=== PATIENT | female | born 1980 | race African-American/Black ===

== ENCOUNTER 2019-08-03 05:14 | Day surgery (SDC) | payer BC ==
[2019-07-30 15:50] VITALS: BMI 39.9
[2019-08-03] MEDS ORDERED: ePHEDrine SULFATE 50 MG/1 ML AMPULE ONE (15:23)
[2019-08-03] MEDS ORDERED: MIDAZOLAM HCL 2 MG/2 ML SINGLE DOSE VIAL ONE (15:23)
[2019-08-03] MEDS ORDERED: PROPOFOL 20 ML ONE ×2 (15:23)
[2019-08-03] MEDS ORDERED: LIDOCAINE HCL/PF 2% SDV 5ML VIAL ONE (15:25)
[2019-08-03] MEDS ORDERED: ACETAMINOPHEN 325 MG TABLET (FP) PO PRN (15:30)
[2019-08-03] MEDS ORDERED: IBUPROFEN 400 MG TABLET (FP) PO PRN (15:30)
--- NOTE | 2019-08-03 15:30 | HP ---
History & Physical Update - History History: No Change - Physical Physical: No Change - Assessment Assessment: No Change - Plan Plan: No Change (No change in HP)
--- NOTE | 2019-08-03 15:34 | OP ---
Operative Note - Note: Operative Date: 08/03/19 Pre-Operative Diagnosis: submucosal myoma. Menorrhagia Operation: Hysteroscopic myomectomy. Suction DC Post-Operative Diagnosis: Same as Pre-op Surgeon: Darling Campbell Anesthesia: General Estimated Blood Loss (mls): 20 Operative Report Dictated: Yes
--- NOTE | 2019-08-03 15:36 | HP ---
Satellite [facility] - Chief Complaint History Source: Patient Limitations to Obtaining History: No Limitations - Past Medical History Allergies/Adverse Reactions: Allergies Allergy/AdvReac Type Severity Reaction Status Date / Time oxycodone [From Percocet] AdvReac Intermediate Vomiting Verified 07/30/19 15:46 ...LMP: 07/11/19 ...: No - Current Medications Current Medications: Home Medications Medication Instructions Recorded Ibuprofen [Motrin -] 600 mg PO QID #28 tablet 08/03/19 Satellite Physical Exam - Physical Examination Vital Signs: Vital Signs Period Temp Pulse Resp BP Sys/Lopez Pulse Ox Last 24 Hr 98.2 F-98.2 F 96-96 20-20 145-145/91-91 98 General Appearance: Well Nourished, Well Developed Abdomen: Soft, No tenderness Extremities: No edema Pelvic Exam: Within normal limits External Genitalia, Within normal limits Vagina, Within normal limits Cervix, Within normal limits [place], Other Uterus Neurological: Intact, Alert, Oriented Satellite Impression/Plan - Impression/Plan Impression: Submucosal myoma. Leiomyomatous uterus Operative Procedure: Hysteroscopic myomectomy. Suction DC Date to be Performed: 08/03/19
[2019-08-03] MEDS ORDERED: ROCURONIUM BROMIDE 50 MG/5 ML SYRINGE ONE (15:55)
[2019-08-03] MEDS ORDERED: KETOROLAC TROMETHAMINE 30 MG/1 ML VIAL ONE (16:09)
[2019-08-03] MEDS ORDERED: DEXAMETHASONE SOD PHOSPHATE 4 MG/1 ML VIAL ONE (16:09)
[2019-08-03] MEDS ORDERED: GLYCOPYRROLATE 0.2 MG/1 ML VIAL ONE (16:14)
[2019-08-03] MEDS ORDERED: NEOSTIGMINE METHYLSULFATE 0.5 MG/ML - 10 ML MDV ONE (16:25)
[2019-08-03] MEDS ORDERED: ACETAMINOPHEN INJECTION 100 ML IVPB ONE (17:04)
[2019-08-03] MEDS ORDERED: ONDANSETRON 4 MG/2 ML VIAL IVPUSH PRN (17:05)
[2019-08-03] MEDS ORDERED: ACETAMINOPHEN 1000 MG/100 ML VIAL (NON FORMULARY) IVPB ONE (17:06)
[2019-08-03] MEDS ORDERED: KETOROLAC TROMETHAMINE 30 MG/1 ML VIAL IVPUSH ONE (17:07)
[2019-08-03] MEDS ORDERED: LACTATED RINGERS SOLUTION 1,000 ML IV SCH (17:15)
[2019-08-03 18:29] VITALS: TEMP 98.4
[2019-08-03 19:40] VITALS: BP 120/65; PULSE 98
--- NOTE | 2019-08-04 10:21 | OP ---
DATE OF OPERATION: 08/03/2019 PREOPERATIVE DIAGNOSIS: Submucosal myoma, leiomyomatous uterus, menorrhagia. OPERATION: Hysteroscopic myomectomy and suction dilation and curettage. POSTOPERATIVE DIAGNOSIS: Submucosal myoma, leiomyomatous uterus, menorrhagia. SURGEON: Darling Campbell MD PROCEDURE: Patient was taken to the operating room, placed in a dorsal lithotomy position, prepped and draped in the usual sterile fashion. A time-out was performed in accordance with hospital regulation. Speculum was placed in the vagina. Anterior lip of the cervix was grasped with a single-tooth tenaculum. Cervix was then dilated to accommodate the operative hysteroscope. Visualization revealed numerous sublingual myomas. Cautery and cutting of all of the myomas was done. Most of the cavity was mostly obliterated with myoma. Some adenomyosis was seen in the cavity. More myoma was seen intramurally but had to stop procedure due to deficit but most of the cavity appeared to be better after the procedure. Estimated blood loss was about 150 mL. Patient tolerated procedure well and was taken to recovery room in stable condition. DARLING CAMPBELL M.D. [id number]
--- NOTE | 2019-08-05 15:42 | PATH ---
Surgical Pathology Report Patient Name: TASHIA JARRETT [facility]. Rec. #: [id number] /Age/Gender: 1980 (Age: 38) / F Account: [id number] Location: [facility] SURGICAL Taken: 08/03/2019 Received: 08/04/2019 Reported: 08/05/2019 Physicians: Darling Campbell M.D. Specimen(s) Received A: ENDOMETRIAL FIBROIDS B: ENDOMETRIAL CURETTINGS Clinical History Menorrhagia Submucosal myomas Final Diagnosis A. ENDOMETRIAL FIBROIDS, HYSTEROSCOPIC MYOMECTOMY: 1 G, FRAGMENTS OF FIBROMUSCULAR TISSUE CONSISTENT WITH SUBMUCOSAL LEIOMYOMA AND SECRETORY ENDOMETRIUM. B. ENDOMETRIAL CURETTINGS, SUCTION DILATION AND CURETTAGE: SECRETORY ENDOMETRIUM, BENIGN CERVICAL TISSUE, AND FIBROMUSCULAR TISSUE CONSISTENT WITH SUBMUCOSAL LEIOMYOMA ADMIXED WITH BLOOD. Electronically Signed Mickie Villasenor M.D. Gross Description A. Received in formalin labeled "endometrial fibroids," is a 1 g, 3.7 x 2.5 x 0.3 cm aggregate of pacheco, firm to rubbery fragments, consistent with morcellated fibroids. The specimen is entirely submitted in 2 cassettes. B. Received in formalin labeled "endometrial curettings," is an 8.5 x 8.0 x 0.7 cm aggregate of pacheco, firm to rubbery tissue fragments, consistent with morcellated fibroids admixed with pacheco-brown hemorrhagic soft tissue fragments. Mill [employer] Helper sections are submitted in 6 cassettes as follows: [id number] submitted hemorrhagic soft tissue fragments; [id number] fibroids. 08/04/2019 [facility]08/04/2019
== END 2019-08-03 19:35 | disposition home or self-care (01) ==
LOC: JASU-SURG 05:14
PROVIDERS: ATTEND Obstetrics & Gynecology
PROC: 0UJD8ZZ Inspection of Uterus and Cervix, Via Natural or Artificial Opening Endoscopic (ICD-10-PCS; 2019-08-03)
PROC: 0UB98ZZ Excision of Uterus, Via Natural or Artificial Opening Endoscopic (ICD-10-PCS; principal; 2019-08-03 13:40)
PROC: 0UDB7ZX Extraction of Endometrium, Via Natural or Artificial Opening, Diagnostic (ICD-10-PCS; 2019-08-03 13:40)
DX: D25.0 Submucous leiomyoma of uterus (principal); N92.0 Excessive and frequent menstruation with regular cycle
CPT/HCPCS: 88305-TC; 94760; J0131